=== PATIENT | male | born 1995 | race Caucasian/White ===

== ENCOUNTER 2018-02-02 01:21 | Emergency (ER) | payer BC ==
[2018-02-02] MEDS ORDERED: Diphtheria,Pertussis(Acell),Tetanus Vaccine 0.5 ML SDV IM ONE (01:47)
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
== END 2018-02-02 02:05 | disposition home or self-care (01) ==
LOC: JD.ED 01:21
DX: S01.01XA Laceration without foreign body of scalp, initial encounter (principal); F17.210 Nicotine dependence, cigarettes, uncomplicated; X99.0XXA Assault by sharp glass, initial encounter; Z23 Encounter for immunization
CPT/HCPCS: 12002; 90471; 90715; 99283-25

== ENCOUNTER 2019-12-31 13:30 | Emergency (ER) | payer SELFPAY ==
--- NOTE | 2019-12-31 14:40 | EDM.PDOC ---
ED HPI GENERAL MEDICAL PROBLEM - General Chief Complaint: Behavioral/Psych Stated Complaint: PANIC ATTACK Time Seen by Provider: 12/31/19 14:07 Source of Information: Reports: Patient History Limitations: Reports: No Limitations - History of Present Illness INITIAL COMMENTS - FREE TEXT/NARRATIVE: Patient is a 24 year old male who presents to the ER after having what he thinks was a panic attack. He states approximately 2 to 3 hours prior to coming to the ER, he had an episode of intense chest pain, feel like his heart was going to beat out of his chest, hyperventilation, and numbness and tingling of his hands feet and lips. At the onset of symptoms, he was just standing in his kitchen. When the symptoms began, he went outside to get some fresh air. He states the episode lasted about 5 to 6 minutes and then resolved. Since that time he has been feeling okay, however he is concerned to the degree of chest pain palpitations that were associated with it. He has no history of panic attacks and has never been on anxiety medications, however states he has been under increased stress lately. He denies any chronic health conditions. He does not have a primary care provider. - Related Data Allergies Allergy/AdvReac Type Severity Reaction Status Date / Time No Known Allergies Allergy Verified 12/31/19 14:16 Home Meds: Home Meds LORazepam [Ativan] 0.5 mg PO Q6H PRN #5 tablet 12/31/19 [Rx] Past Medical History - Past Health History Medical/Surgical History: Denies Medical/Surgical History - Past Surgical History Musculoskeletal Surgical History: Reports: Shoulder Surgery Social & Family History - Tobacco Use Smoking Status *Q: Current Every Day Smoker Years of Tobacco use: 6 Packs/Tins Daily: 0.1 - Caffeine Use Caffeine Use: Reports: Coffee - Living Situation & Occupation Living situation: Reports: Single, with Significant Other (Girlfriend), with Family (Son) 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 ED EXAM, GENERAL - Physical Exam Exam: See Below Exam Limited By: No Limitations General Appearance: Alert, WD/WN, No Apparent Distress Respiratory/Chest: No Respiratory Distress, Lungs Clear, Normal Breath Sounds, No Accessory Muscle Use, Chest Non-Tender Cardiovascular: Normal Peripheral Pulses, Regular Rate, Rhythm, No Edema, No Gallop, No JVD, No Murmur, No Rub Extremities: Normal Inspection, Normal Range of Motion, Non-Tender, Normal Capillary Refill, No Pedal Edema Neurological: Alert, Oriented, CN II-XII Intact, Normal Cognition, Normal Gait, Normal Reflexes, No Motor/Sensory Deficits Psychiatric: Normal Affect, Normal Mood Skin Exam: Warm, Dry, Intact, Normal Color, No Rash EKG INTERPRETATION EKG Date: 12/31/19 Time: 14:34 Rhythm: NSR Rate (Beats/Min): 85 [place]: Normal P-Wave: Present QRS: Normal ST-T: Normal QT: Normal Comparison: NA - No Prior EKG EKG Interpretation Comments: sinus rhythm at 85/min P-wave inverted V1 - non-specific Early R wave transition with LVH pattern - likely normal for age EKG interpreted by Dr. Jayesh Rey MD. Course - Vital Signs Last Recorded V/S: Last Vital Signs Temp 97.9 F 12/31/19 14:04 Pulse 78 12/31/19 14:04 Resp 16 12/31/19 14:04 BP 157/78 H 12/31/19 14:04 Pulse Ox 98 12/31/19 14:04 - Orders/Labs/Meds Orders: Active Orders 24 hr Category Date Time Status EKG Documentation Completion [RC] STAT Care 12/31/19 14:29 Active Labs: Laboratory Tests 12/31/19 12/31/19 Range/Units 14:50 14:50 WBC 9.89 H (4.23-9.07) K/mm3 RBC 5.26 (4.63-6.08) M/mm3 Hgb 17.2 (13.7-17.5) gm/dl Hct 49.4 (40.1-51.0) % MCV 93.9 H (79.0-92.2) fl MCH 32.7 H (25.7-32.2) pg MCHC 34.8 (32.2-35.5) g/dl RDW Std Deviation 42.9 (35.1-43.9) fL Plt Count 304 (163-337) K/mm3 MPV 10.0 (9.4-12.3) fl Neut % (Auto) 55.1 (34.0-67.9) % Lymph % (Auto) 29.9 (21.8-53.1) % [place] % (Auto) 11.8 (5.3-12.2) % Eos % (Auto) 2.4 (0.8-7.0) Baso % (Auto) 0.6 (0.1-1.2) % Neut # (Auto) 5.44 H (1.78-5.38) K/mm3 Lymph # (Auto) 2.96 (1.32-3.57) K/mm3 [place] # (Auto) 1.17 H (0.30-0.82) K/mm3 Eos # (Auto) 0.24 (0.04-0.54) K/mm3 Baso # (Auto) 0.06 (0.01-0.08) K/mm3 Sodium 140 (136-145) mEq/L Potassium 3.8 (3.5-5.1) mEq/L Chloride 103 (98-107) mEq/L Carbon Dioxide 25 (21-32) mEq/L Anion Gap 15.8 H (5-15) BUN 12 (7-18) mg/dL Creatinine 1.2 (0.7-1.3) mg/dL Est Cr Clr Drug Dosing 105.42 mL/min Estimated GFR (MDRD) > 60 (>60) mL/min BUN/Creatinine Ratio 10.0 L (14-18) Glucose 95 (74-106) mg/dL Calcium 10.0 (8.5-10.1) mg/dL Total Bilirubin 2.1 H (0.2-1.0) mg/dL AST 150 H (15-37) U/L ALT 280 H (16-63) U/L Alkaline Phosphatase 72 (46-116) U/L Troponin I < 0.017 (0.00-0.056) ng/mL Total Protein 8.4 H (6.4-8.2) g/dl Albumin 4.5 (3.4-5.0) g/dl Globulin 3.9 gm/dL Albumin/Globulin Ratio 1.2 (1-2) TSH 3rd Generation 1.252 (0.358-3.74) uIU/mL - Re-Assessments/Exams Free Text/Narrative Re-Assessment/Exam: 12/31/19 1615 Allergy was grossly unremarkable. Troponin was negative. TSH was normal. Chest x-ray was normal. EKG was normal. Total bili was elevated at 2.1, AST elevated at 150, ALT elevated to 80. Patient states he did drink last night and is a social drinker. Denies daily alcohol use. Denies any known history of liver dysfunction. It is likely the patient suffered a panic attack. Will provide him with a prescription for him to use should the symptoms recur. Recommend that he call to establish care in the clinic to address his anxiety, as well as have his liver function rechecked. He is in agreement with this plan. Departure - Departure Time of Disposition: 16:17 Disposition: Home, Self-Care 01 Condition: Good Clinical Impression: Anxiety Prescriptions: LORazepam [Ativan] 0.5 mg PO Q6H PRN #5 tablet PRN Reason: Anxiety Instructions: Living With Anxiety Referrals: PCP,None [Primary Care Provider] - Forms: ED Department Discharge Additional Instructions: You were seen in the emergency department today a panic attack. Work-up included blood work, an EKG of your heart. Your thyroid and electrolytes were found to be normal. EKG was normal. Your liver enzymes however are elevated. As we discussed, I would like you to follow-up in the clinic late next week to have your liver enzymes rechecked and also discuss long-term management of your anxiety. A prescription for Ativan has been sent to [facility]. Take this medication if you feel the onset of a panic attack again. Recommend that you refrain from alcohol consumption in light of your elevated liver enzymes. Return to the ER as needed. Sepsis Event Note (ED) - Evaluation Sepsis Screening Result: No Definite Risk - Focused Exam Vital Signs: Vital Signs Temp Pulse Resp BP Pulse Ox 12/31/19 14:04 97.9 F 78 16 157/78 H 98 - My Orders Last 24 Hours: My Active Orders 12/31/19 14:29 EKG Documentation Completion [RC] STAT - Assessment/Plan Last 24 Hours: My Active Orders 12/31/19 14:29 EKG Documentation Completion [RC] STAT
== END 2019-12-31 16:32 | disposition home or self-care (01) ==
LOC: JD.ED 13:30
DX: F41.9 Anxiety disorder, unspecified (principal); F17.210 Nicotine dependence, cigarettes, uncomplicated
CPT/HCPCS: 36415; 80053; 84443; 84484; 85025; 93005; 99283-25

== ENCOUNTER 2020-08-26 14:58 | Emergency (ER) | payer SELFPAY ==
[2020-08-26] MEDS ORDERED: LORazepam 2 MG/ML SDV IM ONE (15:22)
--- NOTE | 2020-08-26 16:26 | EDM.PDOCBH ---
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 He is feeling anxious, stressed out over the of a very close friend and also his father. He very close friend about 2 yrs ago so once again that is really on his mind. He believes that is making him more sad and depressed. He does suffer from chronic depression and anxiety. He has seen a counselor at [facility] but did not find that helpful and has not continued to follow up. He has abused alcohol in the past. He states he can often go long periods of time without drinking. He has been drinking today. He states he went to work intoxicated and his boss told him to "go Home" He states his girlfriend came home, found him drinking and they got into an argument. He is reported to have made some suicidal statements to her. He denied feeling suicidal at time of my evaluation but does admit to feeling stressed out, anxious and depressed. - Related Data Allergies Allergy/AdvReac Type Severity Reaction Status Date / Time No Known Allergies Allergy Verified 08/26/20 15:12 Home Meds: Home Meds . 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) ED ROS GENERAL - Review of Systems Review Of Systems: See Below Constitutional: Denies: Fever, Chills HEENT: Reports: No Symptoms Respiratory: Denies: Shortness of Breath Cardiovascular: Denies: Chest Pain GI/Abdominal: Denies: Abdominal Pain, Nausea, Vomiting Musculoskeletal: Reports: No Symptoms Neurological: Reports: No Symptoms Psychiatric: Reports: Anxiety, Depression, Suicidal Ideation (gone, he denies feeling suicidal at time of my initial evaluation and at time of reexam just prior to discharge) ED EXAM, BEHAVIORAL HEALTH - Physical Exam Exam: See Below General Appearance: Alert, Anxious Head: Atraumatic Neck: Supple Respiratory/Chest: No Respiratory Distress, Lungs Clear Cardiovascular: Regular Rate, Rhythm Extremities: Normal Inspection, Normal Range of Motion, Other (superfiscial abrasion L wrist) Neurological: Alert, No Motor/Sensory Deficits Psychiatric: Alert, Oriented, Restless, Other (anxious). No: Homicidal Thoughts, Suicidal Plan, Suicidal Thoughts, Auditory Hallucinations, Visual Hallucinations Skin Exam: Warm, Dry, Normal color COURSE, BEHAVIORAL HEALTH COMP - Course Vital Signs: Last Vital Signs Temp 96.4 F L 08/26/20 15:02 Pulse 88 08/26/20 17:00 Resp 16 08/26/20 17:00 BP 150/100 H 08/26/20 17:00 Pulse Ox 99 08/26/20 17:00 Orders, Labs, Meds: Medications Discontinued Medications Generic Name Dose Route Start Last Admin Trade Name Renetta PRN Reason Stop Dose Admin Lorazepam 2 mg 08/26/20 15:22 08/26/20 15:33 Ativan IM 08/26/20 15:23 2 mg ONETIME ONE Administration Re-Assessment/Re-Exam: We did give ativan 2 mg IM to help him relax and to allow us to observe him for awhile. He was very restless on arrival pacing the room. He did relax somewhat, watched TV for awhile. I did visit with him at length prior to discharge. He does not deny making a suicidal comment to his girlfriend but denies that he wants to or kill himself. He states that "when I drink alcohol I say stupid things" I have asked if he would prefer to start on an antidepressant medication now with follow up counseling or go for inpatient Psych. eval and treatment. He does not want to go anywhere for inpatient eval and treatment at this time. He states he has been to [facility] in the past but has not followed up with them. He feels safe to go home. Strong return precautions given. Discharge instr. as documented. Departure - Departure Time of Disposition: 16:49 Disposition: Home, Self-Care 01 Condition: Fair Clinical Impression: Anxiety Depression Qualifiers: Depression Type: unspecified Qualified Code(s): F32.9 - Major depressive disorder, single episode, unspecified - Discharge Information Instructions: Living With Depression, Managing Anxiety, Adult Referrals: PCP,None [Primary Care Provider] - Forms: ED Department Discharge Additional Instructions: Zoloft 25 mg daily. That is a small dosage of an antidepressant that over time will help you feel better. [facility] at either the [facility] or at the [facility] is open today. See one of our medical providers at our [facility] medical clinic next week for a complete medical physical, further treatment and guidance for your anxiety and depression. Call [phone] for appointment. Call or return to ED as needed, especially if you do develop any serious thoughts of self harm or symptoms otherwise worsening in any way. Sepsis Event Note (ED) - Evaluation Sepsis Screening Result: No Definite Risk - Focused Exam Vital Signs: Vital Signs Temp Pulse Resp BP Pulse Ox 08/26/20 17:00 88 16 150/100 H 99 08/26/20 15:02 96.4 F L 94 16 159/115 H 97
== END 2020-08-26 17:02 | disposition home or self-care (01) ==
LOC: JD.ED 14:58
DX: F41.9 Anxiety disorder, unspecified (principal); F32.9 Major depressive disorder, single episode, unspecified
CPT/HCPCS: 96372; 99283; J2060; 99284

== ENCOUNTER 2020-12-02 05:52 | Emergency (ER) | payer SELFPAY ==
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
--- NOTE | 2020-12-02 08:23 | CT ---
CT facial bones Technique: Multiple axial sections through the facial bones were obtained. Intravenous contrast was not utilized. Reconstructed coronal and sagittal images were obtained. Comparison: Prior head CT study of 04/25/14. Findings: Fracture is identified within the inferior left orbital floor which shows depression of bony fragments into the maxillary sinus by approximately 7-8 mm. There is mild protrusion of orbital fat into this defect. There is air being seen lateral to the left globe and posterior to the globe. Additional air is noted anteriorly within the cheek and left periorbital region. Inferior orbital floor fracture also involves a small portion of the lateral left nasal wall. Soft tissue densities are noted within the left side of the sphenoid sinus which are likely due to chronic retention cyst. Slight retention cyst is noted within the right maxillary sinus. No additional facial bone abnormality is appreciated. Mastoid sinuses are clear. Impression: 1. Inferior orbital floor fracture on the left side with mild displacement of the inferior orbital bones into the left maxillary sinus. This displacement is about 7-8 mm. There is some displacement of orbital fat into this defect. This fracture also extends to involve a small portion of the lateral left nasal wall. 2. Air is noted lateral to the globe and posterior to the globe as well as within the anterior periorbital space extending into the left cheek. 3. Several sinus findings believed to be chronic as described above. Diagnostic code #3
== END 2020-12-02 09:42 | disposition home or self-care (01) ==
LOC: JD.ED 05:52
DX: S02.32XA Fracture of orbital floor, left side, initial encounter for closed fracture (principal); Y04.0XXA Assault by unarmed brawl or fight, initial encounter
CPT/HCPCS: 70486; 70486-26; 99283; 99283-25

== ENCOUNTER 2021-02-22 17:44 | Emergency (ER) | payer SELFPAY | END 2021-02-22 18:00 | disposition left against medical advice (07) | LOC: JD.ED 17:44 | DX: R45.851 Suicidal ideations (principal); Z53.21 Procedure and treatment not carried out due to patient leaving prior to being seen by health care provider ==

== ENCOUNTER 2022-12-11 21:38 | Emergency (ER) | payer BC ==
[2022-12-11 22:07] LABS: BASOPHILS ABSOLUTE AUTO 0.05 K/mm3 (0.01-0.08); BASOPHILS PERCENT AUTO 0.7 % (0.1-1.2); EOSINOPHILS ABSOLUTE AUTO 0.11 K/mm3 (0.04-0.54); EOSINOPHILS PERCENT AUTO 1.6 (0.8-7.0); HEMOGLOBIN 16.2 gm/dl (13.7-17.5); IMMATURE GRAN ABSOLUTE AUTO 0.01 K/mm3 (0.00-0.10); IMMATURE GRAN PERCENT AUTO 0.1 % (<=1.0); LYMPHOCYTES ABSOLUTE AUTO 2.17 K/mm3 (1.32-3.57); LYMPHOCYTES PERCENT AUTO 32.1 % (21.8-53.1); MEAN CORPUSCULAR HEMOGLOBIN 33.2 pg (25.7-32.2); MEAN CORPUSCULAR VOLUME 92.2 fl (79.0-92.2); MEAN PLATELET VOLUME 9.4 fl (9.4-12.3); MONOCYTES ABSOLUTE AUTO 0.74 K/mm3 (0.30-0.82); MONOCYTES PERCENT AUTO 10.9 % (5.3-12.2); NEUTROPHILS ABSOLUTE AUTO 3.69 K/mm3 (1.78-5.38); NEUTROPHILS PERCENT AUTO 54.6 % (34.0-67.9); PLATELET COUNT,PLT 278 K/mm3 (163-337); RED BLOOD CELL COUNT 4.88 M/mm3 (4.63-6.08); WHITE BLOOD CELL COUNT,WBC 6.77 K/mm3 (4.23-9.07)
[2022-12-11] MEDS ORDERED: Ondansetron 4 MG/2 ML SDV IVPUSH ONE (22:29)
[2022-12-11] MEDS ORDERED: LORazepam 2 MG/ML SDV IVPUSH ONE (22:29)
[2022-12-11] MEDS ORDERED: Lactated Ringers 1,000 ML IV ONE (22:37)
[2022-12-11 22:38] LABS: A/G RATIO 1.1 (1-2); ALANINE AMINOTRANSFERASE,ALT 188 U/L (16-63); ALBUMIN 4.2 g/dl (3.4-5.0); ALKALINE PHOSPHATASE 72 U/L (46-116); ANION GAP 21.8 (5-15); ASPARTATE AMNIOTRANSFERASE,AST 171 U/L (15-37); BILIRUBIN TOTAL 2.1 mg/dL (0.2-1.0); BLOOD UREA NITROGEN,BUN 11 mg/dL (7-18); BUN/CREATININE RATIO 9.2 (14-18); CALCIUM 9.2 mg/dL (8.5-10.1); CARBON DIOXIDE,CO2 20 mEq/L (21-32); CHLORIDE,CL 98 mEq/L (98-107); CREATININE 1.2 mg/dL (0.7-1.3); ESTIMATED GFR 84 mL/min (>60); ETHANOL BLOOD MEDICAL 0.01 gm% (0.00); GLUCOSE RANDOM 106 mg/dL (70-99); POTASSIUM,K 2.8 mEq/L (3.5-5.1); SODIUM,NA 137 mEq/L (136-145); TSH 2.866 uIU/mL (0.358-3.74)
[2022-12-11 22:39] LABS: ACETAMINOPHEN 0 ug/mL (10-30)
[2022-12-11] MEDS ORDERED: Potassium Chloride 20 MEQ Tab.ER PO ONE (22:50)
[2022-12-11] MEDS: Potassium Chloride 10 MEQ in Premix Bag 1 BAG IV SCH (23:06)
[2022-12-11 23:21] LABS: BARBITURATE SCREEN,URINE NEGATIVE (CUTOFF=200); BENZODIAZEPINES SCREEN,URINE NEGATIVE (CUTOFF=150); BUPRENORPHINE SCREEN,URINE NEGATIVE (CUTOFF=10); METHADONE SCREEN, URINE NEGATIVE (CUT0FF=200); METHAMPHETAMINES SCREEN, URINE NEGATIVE (CUTOFF=500); OXYCODONE SCREEN,URINE NEGATIVE (CUT0FF=100); PROPOXYPHENE SCREEN,URINE NEGATIVE (CUTOFF=300); THC SCREEN,URINE 20 NG/ML PRESUMPTIVE POSITIVE (CUTOFF=50)
[2022-12-11 23:22] LABS: AMPHETAMINES SCREEN, URINE NEGATIVE (CUTOFF=500)
[2022-12-12] MEDS: Potassium Chloride 10 MEQ in Premix Bag 1 BAG IV SCH ×3 (00:01→02:05)
[2022-12-12] MEDS ORDERED: Lactated Ringers 1,000 ML ONE (00:03)
[2022-12-12] MEDS ORDERED: Lactated Ringers 1,000 ML IV SCH (00:15)
[2022-12-12] MEDS ORDERED: LORazepam 2 MG/ML SDV IVPUSH ONE (01:12)
[2022-12-12] MEDS ORDERED: Magnesium Sulfate/Water 4 GM in Premix Bag 1 BAG IV ONE (02:09)
== END 2022-12-12 07:00 | disposition home or self-care (01) ==
LOC: JD.ED 21:38
DX: F10.239 Alcohol dependence with withdrawal, unspecified (principal)
CPT/HCPCS: 36415; 80053; 80143; 80179; 80306; 80307; 83735; 84443; 85025; 93005; 96365; 96366; 96367; 96375; 96376; 99284; A9270; J2060; J2405; J3475; J3480; J7120